=== PATIENT | female | born 1980 | race Caucasian/White ===

== ENCOUNTER 2022-09-27 15:39 | Emergency (ER) | payer OTHER ==
[~2022-09-27] VITALS: Ht 157.5 cm; Wt 47.6 kg
--- NOTE | 2022-09-27 15:40 | NUR ---
BIBS FOR PAIN IN LEFT ARM ON MOVEMENT. A/O X 3, ABLE TO MAKE NEEDS KNOWN, TOLERATING WELL ON ROOM AIR.
--- NOTE | 2022-09-27 16:44 | NUR ---
SPLINT APPLIED TO LEFT ARM, PATIENT SIGNED AGREEMENT FORM
--- NOTE | 2022-09-27 16:44 | NUR ---
Patient discharged to home in stable condition. Written and verbal after care instructions given. Patient verbalizes understanding of instruction.
[2022-09-27 16:47] VITALS: BP 106/73
== END 2022-09-27 16:47 | disposition home or self-care (01) ==
LOC: ER 16:11
DX: M65.4 Radial styloid tenosynovitis [de Quervain] (principal)